=== PATIENT | male | born 1960 | race Caucasian/White ===

== ENCOUNTER 2021-05-29 00:36 | Emergency (ER) | payer SELFPAY ==
[~2021-05-29] VITALS: Ht 160 cm; Wt 63.5 kg
[2021-05-29] MEDS ORDERED: METOCLOPRAMIDE HCL 10 MG TAB PO ONE (01:45)
[2021-05-29] MEDS ORDERED: IBUPROFEN 600 MG TAB PO ONE (01:45)
[2021-05-29 03:00] LABS: Albumin 4.2 g/dL (3.4-5.0); BUN/Creatinine Ratio 12.2; Calcium 9.4 mg/dL (8.5-10.1); Potassium 3.9 mmol/L (3.5-5.1)
[2021-05-29 03:02] LABS: Bilirubin, Total 0.4 mg/dL (0.2-1.0); Lipase 76 U/L (73-393); Nucleated Red Blood Cells % 0.1 %; Total Protein 9.1 g/dL (6.4-8.2)
[2021-05-29 03:07] LABS: Basophils # (auto) 0 10 ^3/uL (0-0.2); Basophils % (auto) 0.2 % (0.0-2.0); Eosinophils # (auto) 0 10 ^3/uL (0-0.8); Eosinophils % (auto) 0.1 % (0.0-7.0); Hematocrit 46.1 % (41.0-53.0); Hemoglobin 15.8 g/dL (13.5-17.5); Lymphocytes # (auto) 0.8 10 ^3/uL (0.4-5.4); Lymphocytes % (auto) 4.6 % (10.0-50.0); Mean Corpuscular Hemoglobin 31.4 pg (28.0-32.0); Mean Corpuscular Hgb Conc. 34.3 g/dL (32.0-36.0); Mean Corpuscular Volume 91.5 fL (80.0-100.0); Monocytes % (auto) 5.5 % (0.0-12.0); Neutrophils # (auto) 16.2 10 ^3/uL (1.6-8.6); Neutrophils % (auto) 89.6 % (37.0-80.0); Red Blood Cells 5.04 10^6/uL (4.5-5.90); Red Cell Distribution Width 14.4 % (11.8-14.3)
[2021-05-29] MEDS ORDERED: SODIUM CHLORIDE 0.9% 1,000 ML IV ONE (04:00)
[2021-05-29] MEDS ORDERED: IOHEXOL 300 MG/ML 100ML BOTTLE IJ ONE (04:15)
[2021-05-29 04:44] LABS: Urine Bacteria NONE SEEN /hpf (None Seen); Urine Blood Negative /uL (Negative); Urine Hyaline Cast FEW /lpf (0 - 2); Urine Mucus FEW (None Seen); Urine Specific Gravity 1.024 (1.001-1.035); Urine WBC 2 /hpf (0 - 3)
[2021-05-29 05:06] VITALS: BP 120/81
== END 2021-05-29 05:35 | disposition home or self-care (01) ==
LOC: ER 00:36
DX: G43.909 Migraine, unspecified, not intractable, without status migrainosus (principal)
CPT/HCPCS: 36415; 70450; 71045; 74177; 80053; 81001; 83690; 84484; 85025; 93005; 96360; 99285; J7030; J8597; Q9967

== ENCOUNTER 2021-05-29 05:55 | Emergency (ER) | payer SELFPAY ==
[~2021-05-29] VITALS: Ht 160 cm; Wt 63.5 kg
[2021-05-29 07:46] VITALS: BP 120/81
== END 2021-05-29 08:22 | disposition home or self-care (01) ==
LOC: ER 05:55
DX: R56.9 Unspecified convulsions (principal); N39.0 Urinary tract infection, site not specified; Z76.0 Encounter for issue of repeat prescription